=== PATIENT | female | born 1985 | race Two or more races ===

== ENCOUNTER 2016-11-19 14:09 | Emergency (ER) | payer SELFPAY ==
--- NOTE | 2016-11-19 14:40 | EDPHY ---
H & P Time Seen by Provider: 11/19/16 14:40 Constitutional: Initial Vital Signs Temperature (C) 36.7 C 11/19/16 14:09 Heart Rate 96 11/19/16 14:09 Respiratory Rate 16 11/19/16 14:09 Blood Pressure 112/78 11/19/16 14:09 O2 Sat (%) 94 11/19/16 14:09 O2 Delivery Mode Room Air Allergies/Adverse Reactions: No Known Allergies Allergy (Verified 11/19/16 14:38) Home Medications: Medication Instructions Recorded NK [No Known Home Meds] 11/19/16 Medical Decision Making ED Course/Re-evaluation: CHIEF COMPLAINT: "I'm happy now;" consumed edible marijuana HISTORY OF PRESENT ILLNESS: The patient is a 40 y/o female arriving with her who initially complained of feeling "off" after consuming a marijuana edible today. Upon assessment, she says she feels "happy now" and denies any ongoing complaints. She initially felt anxious, but now feels high. No vomiting , headache, weakness, paresthesias, or other complaints. She is normally healthy. REVIEW OF SYSTEMS: A 10 point review of systems was performed and is negative with the exception of the elements mentioned in the history of present illness. PHYSICAL EXAM: HR, BP, O2 Sat, RR. Temp noted General Appearance: Alert, well hydrated, appropriate, and non-toxic appearing. Head: Atraumatic without scalp tenderness or obvious injury Eyes: Pupils equal, round, reactive to light and accommodation, EOMI, no trauma , no injection. Nose: Atraumatic, no rhinorrhea, clear. Throat: Mucus membranes moist. Neck: Supple, nontender, no lymphadenopathy. Respiratory: No retractions, no distress, no wheezes, and no accessory muscle use. Lungs are clear to auscultation bilaterally. Cardiovascular: Regular rate and rhythm, no murmurs, rubs, or gallops. Good capillary refill all extremities. Gastrointestinal: Abdomen is soft, nontender, non-distended, no masses, no rebound, no guarding, no peritoneal signs. Musculoskeletal: Normal active ROM of all extremities, atraumatic. Neurological: Alert, appropriate, and interactive. Nonfocal neuro exam. Skin: No rashes, good turgor, no nodules on palpation. Past medical history: Denies Past surgical history: Denies Family history: noncontributory Social history: at bedside. Children at home DIFFERENTIAL DIAGNOSIS: The differential diagnosis for the patient's symptoms included but was not limited to drug intoxicant, alcohol use, mental health complaint. MEDICAL DECISION MAKING: This is a healthy 31 y/o female who presents with initial complaint of anxiety after using marijuana edible today. Upon assessment, she is feeling "happy" and denies any complaints. Her exam is unremarkable. She feels ready to go home. I' ve advised her to avoid using marijuana products due to her side effects. She understands she should not drive while using marijuana. Return precautions given. Departure - Departure Disposition: Home, Routine, Self-Care Clinical Impression: Marijuana use Condition: Good Instructions: Cannabis Abuse (ED) Additional Instructions: Avoid marijuana use. Do not drive while consuming marijuana. Referrals: Patient,NotPresent [Primary Care Provider] - As per Instructions [facility],. [Clinic] - As per Instructions
[2016-11-19 14:47] VITALS: RESP 16; TEMP 98.1
[2016-11-19 15:34] VITALS: BP 106/67; PULSE 86; O2SAT 97
== END 2016-11-19 15:32 | disposition home or self-care (01) ==
LOC: EDUNIT#
DX: F12.90 Cannabis use, unspecified, uncomplicated (principal)